=== PATIENT | male | born 1980 | race Caucasian/White ===

== ENCOUNTER 2024-03-28 04:38 | Emergency (ER) | payer SELFPAY ==
[2024-03-28 04:41] VITALS: BP 181/98
[2024-03-28 05:00] VITALS: BP 148/87
--- NOTE | 2024-03-28 05:00 | ED.GENMED ---
History of Present Illness
General
Chief Complaint: Flank Pain
Source: patient and spouse
Exam Limitations: none
Time Seen by Provider: 03/28/24 04:46
History of Present Illness
History of Present Illness:
This is a 44-year-old gentleman who has history of kidney stones having passed one uneventfully 2019. He complains of several week history of intermittent mildly blood-tinged urine without associated pain. Due to intermittent hematuria he
initially presented to [facility] ED on March 24. CT of the abdomen pelvis showed a 5 mm stone mid ureter without associated hydronephrosis. No other intrarenal stones. 5 mm stone visualized adjacent to the L2-3
vertebra on data quality consultant film.
He then presented to [facility] ED acutely on March 26 with onset of acute severe right flank pain associated with nausea. At bedside renal ultrasound showed no hydronephrosis. He was given IV fluids and IV Toradol with prompt resolution
of pain.
He was not provided pain medication and instead instructed to take [id number] NSAIDs. He has had intermittent right flank pain and nausea since then and did receive some IV fluids as well as IV Toradol yesterday morning at infusion center.
Tonight, right flank pain recurred, severe and he took ibuprofen 800 mg approximately 1 hour prior to arrival.
Right flank pain is moderately improved but has not completely resolved. Nausea has resolved.
He has not had a fever nor chills, no diarrhea nor constipation. Hematuria has resolved and he denies dysuria nor urgency.
He takes no medicines on a daily basis. He does take as needed Adderall.
Past History
Past History
ED Past Medical History: Psychiatric (ADD) and Other (Kidney stones)
ED Past Surgical History: Orthopedic (Right knee ACL repair)
Social History
Tobacco: Non-smoker
Alcohol: Occasional
Drug: None
Living: with family
Employment: Employed (Self-employed)
Family History
Family History: Other (Noncontributory)
Phy Exam
Physical Exam
Physical Exam:
GENERAL: 44-year-old male appears his stated age, awake and alert, pleasant, appears in no acute distress.
EYE: anicteric
NECK: Supple, nontender, no meningismus, no significant adenopathy.
ENT: oral mucosa is moist. No rhinorrhea
CARDIAC: Regular rate and rhythm. no murmur.
LUNGS: Clear breath sounds bilaterally, no acute respiratory distress, no wheezes/rales/rhonchi
ABDOMEN: Soft, nondistended, without focal tenderness, no r/g, mild right CVA tenderness with percussion. Normoactive BS.
NEUROLOGICAL: Alert and oriented x3, no focal neuro deficits. Gait is rios and steady.
SKIN: Warm and dry, normal color, skin intact. No rash.
MUSCULOSKELETAL: No C/C/E. peripheral pulses are full and equal b/l. No palpable tenderness.
PSYCH: Normal and appropriate interaction.
Course
Orders/Labs/Results
Orders:
Orders
03/28/24 04:49
Urinalysis Reflex To Culture Urgent
Date Specimen was Collected: 03/28/24
Time Specimen was Collected: 04:49
03/28/24 04:50
Complete Blood Count/With Diff Urgent
Comprehensive Metabolic Panel Urgent
03/28/24 05:08
CR Abdomen - 1 View Urgent
Comment:
Reason For Exam: R flank pain, hx 5 mm stone R mid-ureter
03/28/24 06:27
Ketorolac [Toradol] 30 mg .ROUTE .STK-MED ONE
Ondansetron Injectable [Zofran] 4 mg .ROUTE .STK-MED ONE
03/28/24 06:28
Ketorolac [Toradol] 30 mg IV NOW STA
Ondansetron Injectable [Zofran] 4 mg IV NOW STA
Abnormal Lab Results
03/28/24
04:50
WBC 11.7 H 10^3/uL
(4.8-10.8)
RBC 4.67 L 10^6/uL
(4.70-6.10)
Hgb 12.5 L g/dL
(13.0-18.0)
Hct 36.2 L %
(39.0-52.0)
MCV 77.5 L fL
(80.0-94.0)
MCH 26.8 L pg
(27.0-31.0)
Abs Immat Gran (auto) 0.1 H 10^3/uL
(0-0.05)
Absolute Neuts (auto) 8.6 H 10^3/uL
(1.4-6.5)
Absolute Monos (auto) 1.0 H 10^3/uL
(0.1-0.6)
Immature Gran % 0.7 H %
(0-0.5)
Lymphocytes % 15.5 L %
(20.5-51.1)
Sodium 134 L mmol/L
(135-145)
Chloride 97 L mmol/L
(98-107)
Carbon Dioxide 21 L mmol/L
(22-30)
Creatinine 0.6 L mg/dL
(0.7-1.3)
Glucose 281 H mg/dl
(70-99)
03/28/24 04:50
03/28/24 04:50
Vital Signs
Initial and Last Documented VS:
Initial Vital Signs
Temp Pulse Resp BP Pulse Ox
98.8 F 91 16 181/98 98
03/28/24 04:41 03/28/24 04:41 03/28/24 04:41 03/28/24 04:41 03/28/24 04:41
Last Documented Vital Signs
Temp Pulse Resp BP Pulse Ox
98.8 F 78 19 148/87 98
03/28/24 04:41 03/28/24 06:18 03/28/24 04:47 03/28/24 05:00 03/28/24 06:18
MDM/Problems Addressed
Differential Diagnosis Includes:
Patient presents with several day history of intermittent right flank pain with known 5 mm stone mid right ureter noted on CAT scan at outside facility on March 24.
Reportedly having no evidence of ureteral obstruction on ultrasound March 26.
Concern for persistent mid ureter stone, concern for canal obstructing stone, concern for acute kidney injury, other consideration is UTI.
Overall appears comfortable after taking a dose of ibuprofen at home.
Will check labs, renal function, urinalysis and will plan for KUB film to assess for stone location along ureter.
*Radiology
Radiology exam reviewed: preliminary read by ED provider (KUB shows no definitive evidence of ureteric stone. Moderate stool throughout the colon.)
*Pulse Oximetry
Patient hypoxic: no
*Critical Care Note
Total Time (30-74mins, 75-104mins- exclusive of procedures): Not Applicable
Update Note
Update Note:
Patient remains pain-free and comfortable. No return of nausea.
KUB film shows moderate stool throughout the colon but no definitive evidence of ureteric stone.
Bedside renal ultrasound shows a very minimal fullness of renal pelvis on the right.
Labs are remarkable for minimally elevated white blood cell count, mild anemia. Normal creatinine. Moderately elevated random glucose of 281. Patient does acknowledge that he was recently notified that his blood sugars elevated, likely new
onset/adult onset diabetes.
He plans to initiate low glycemic diet.
At this point as patient is comfortable and pain-free, no indication for CAT scan at this time, I suspect stone is migrating down the ureter.
Will write a prescription for short course of oral Toradol for as needed pain, Zofran for as needed nausea and will add a short course of Flomax.
Discussed importance of remaining well-hydrated on a daily basis.
Patient has been encouraged to follow-up with PCP regarding elevated glucose/diabetes.
Will refer to urology as well for as needed follow-up.
Return precautions discussed.
ED Attending Note
-
Portions of this chart may have been created with voice recognition software.� Occasional wrong word or��sound alike� substitutions may have occurred due to the inherent limitations of voice recognition software.
Discharge Plan
Departure
Patient Disposition: Home (Routine Discharge)
Date of Disposition: 03/28/24
Time of Disposition: 06:07
Patient with high blood pressure during this ER visit?: Yes
Condition: Good
Discharge Problem:
Renal colic on right side
Instructions: Kidney Stones (DC), Ketogenic diet, BLOOD PRESSURE
Prescriptions:
New
ketorolac 10 mg tablet
10 mg PO Q6H 5 Days Qty: 20 0RF
tamsulosin [Flomax] 0.4 mg Capsule
0.4 mg PO DAILY Qty: 10 0RF
ondansetron 4 mg tablet,disintegrating
4 mg PO QID PRN (Reason: nausea and vomiting) Qty: 20 0RF
No Action
tamsulosin [Flomax] 0.4 mg Capsule
0.4 mg PO DAILY
dextroamphetamine-amphetamine [Adderall XR] 30 mg Capsule,Extended Release 24hr
30 mg PO DAILY
Referrals:
Wilmar Maradiaga MD [Active] - As needed
Interventions
Interventions:
*Risk Screen - Suicide Last Done: 03/28/24 04:41
*General Assessment Last Done: 03/28/24 05:02
*Neglect/Abuse Screening Last Done: 03/28/24 04:41
ED- Fall Risk Assessment Last Done: 03/28/24 05:02
*ED COVID-19 Vaccine History Last Done: 03/28/24 04:41
XC-Pfccaf-Cxkjvtmfbd Assessment Last Done: 03/28/24 04:58
ED-Male Genitourinary Assessment Last Done: 03/28/24 04:58
Discharge Date and Time
Print Language: LATVIAN
[2024-03-28 05:02] VITALS: BMI 31.5
[2024-03-28 05:09] LABS: % Basophils 0.3 % (0-2); % Eosinophils 1.3 % (0-6); % Immature Granulocytes 0.7 % (0-0.5); % Lymphocytes 15.5 % (20.5-51.1); % Monocytes 8.9 % (1.7-9.3); % Neutrophils 73.3 % (42.2-75.2); Absolute Eosinophils 0.2 10^3/uL (0-0.7); Absolute Immature Granulocytes 0.1 10^3/uL (0-0.05); Absolute Lymphocytes 1.8 10^3/uL (1.2-3.4); Absolute Neutrophils 8.6 10^3/uL (1.4-6.5); Hematocrit 36.2 % (39.0-52.0); Hemoglobin 12.5 g/dL (13.0-18.0); Mean Corp Hgb Conc. 34.5 g/dL (33.0-37.0); Mean Corpuscular Hgb 26.8 pg (27.0-31.0); Mean Corpuscular Volume 77.5 fL (80.0-94.0); Mean Platelet Volume 9.2 fL (7.4-10.4); Nucleated Red Blood Cells % 0 % (-); Platelet Count 298 10^3/uL (130-400); Red Blood Cell Count 4.67 10^6/uL (4.70-6.10); Red Cell Dist. Width 13.4 % (11.5-14.5); White Blood Cell Count 11.7 10^3/uL (4.8-10.8)
[2024-03-28 05:34] LABS: ALT (SGPT) 43 U/L (0-50); AST (SGOT) 33 U/L (17-59); Albumin 4.1 g/dl (3.5-5.0); Alkaline Phosphatase 101 U/L (38-126); Blood Urea Nitrogen 9 mg/dl (9-20); Calcium 8.9 mg/dl (8.4-10.2); Carbon Dioxide 21 mmol/L (22-30); Chloride 97 mmol/L (98-107); Estimated Creatinine Clearance > 125 ml/min; Glucose 281 mg/dl (70-99); Potassium 3.9 mmol/L (3.5-5.1); Sodium 134 mmol/L (135-145); Total Bilirubin 1.1 mg/dl (0.2-1.3); eGFR > 60.00
[2024-03-28] MEDS: TORADOL 30 MG IV (06:29)
[2024-03-28] MEDS: ZOFRAN 4 MG IV (06:30)
[2024-03-28 06:41] VITALS: BP 178/106
== END 2024-03-28 06:54 | disposition home or self-care (01) ==
LOC: EMR 04:38
PROVIDERS: EMERGENCY PHYSICIAN Emergency Medicine
DX: N23 Unspecified renal colic (principal); R73.9 Hyperglycemia, unspecified; D64.9 Anemia, unspecified; Z87.442 Personal history of urinary calculi
CPT/HCPCS: 96374; 96375; 99284; 74018; 80053; 85025